=== PATIENT | male | born 1985 ===

== ENCOUNTER 2018-03-28 18:44 | Emergency (ER) | payer BC, OTHER ==
[2018-03-28 19:34] VITALS: BP 145/102
[2018-03-28] MEDS ORDERED: Tetan/Diph/Pertus SYR(Tdap)* 0.5 ML SYR(BOOSTRIX) use SYR IM ONE (19:58)
[2018-03-28] MEDS ORDERED: Bacitracin OINTMENT* 0.5% 0.5 oz TUBE TOPICAL ONE (19:59)
--- NOTE | 2018-03-28 21:29 | ED ---
Lidia Moraes Jade, scribed for Mariusz Witt MD on 03/28/18 at 2007 . Upper Extremity Pain - HPI Summary HPI Summary: Pt is a 33 y/o male who presents to [facility] s/p thumb injury at 18:30. He states he cut the tip of his right thumb while using a circular saw. Pain is rated 3/ 10 in severity, and he has been applying pressure to the wound. Pt has not had a Tetanus shot since he was a child. - History of Current Complaint Chief Complaint: UCLaceration Stated Complaint: THUMB INJURY Time Seen by Provider: 03/28/18 19:48 Hx Obtained From: Patient Mechanism Of Injury: Other - Circular saw Onset/Duration: Started Hours Ago - 18:30, Still Present Severity Currently: Moderate - 3/10 Pain Location: Finger - Right thumb - Allergies/Home Medications Allergies/Adverse Reactions: Allergies Allergy/AdvReac Type Severity Reaction Status Date / Time No Known Allergies Allergy Verified 03/28/18 19:35 Home Medications: Home Medications Dextroamphetamine/Amphetamine [Adderall Xr 30 mg Capsule] 30 mg PO DAILY [History Confirmed 03/28/18] PMH/Surg Hx/FS Hx/Imm Hx Psychiatric History: Reports: Hx Attention Deficit Hyperactivity Disorder - Surgical History Surgery Procedure, Year, and Place: deviated septum repair, appy Infectious Disease History: No Infectious Disease History: Denies: Traveled Outside the [place] in Last 30 Days - Family History Known Family History: Positive: Other - NEGATIVE: blood clot disorders - Social History Alcohol Use: Weekly Substance Use Type: Reports: None Smoking Status (MU): Never Smoked Tobacco Review of Systems Negative: Fever Positive: Other - Right thumb evulsion - pain All Other Systems Reviewed And Are Negative: Yes Physical Exam - Summary Physical Exam Summary: Appearance: Well appearing, no pain distress Skin: warm, dry, reflects adequate perfusion. Avulsion injury of superficial portion of distal nailbed and pulp of end of rightthumb. No subungal hematoma. Head/face: normal Eyes: EOMI, ROBB ENT: normal Neck: supple, non-tender Respiratory: CTA, breath sounds present Cardiovascular: RRR, pulses symmetrical. NV intact. Abdomen: non-tender, soft Bowel Sounds: present Musculoskeletal: normal, strength/ROM intact. No tendon injury. Neuro: normal, sensory motor intact, A&Ox3 Triage Information Reviewed: Yes Vital Signs On Initial Exam: Initial Vitals Temp Pulse Resp BP Pulse Ox 98.4 F 80 16 145/102 100 03/28/18 19:29 03/28/18 19:29 03/28/18 19:29 03/28/18 19:29 03/28/18 19:29 Vital Signs Reviewed: Yes Procedures - Procedure Summary Procedure Summary: Irrigated under faucet with soap and water. Held pressure to the wound, put 3 layers of Surgicel, Bacitracin cream, ands 2 gauze dressings. Diagnostics - Vital Signs Vital Signs Temp Pulse Resp BP Pulse Ox 03/28/18 19:29 98.4 F 80 16 145/102 100 - Laboratory Lab Statement: Any lab studies that have been ordered have been reviewed, and results considered in the medical decision making process. Course/Dx - Course Course Of Treatment: Tetanus is up-to-date. Self-employed contractor. Full avulsion of tissue including the distalmost nail plate. Wound cleaned and dressed. Follow-up primary care physician. - Diagnoses Provider Diagnoses: Fingertip avulsion Discharge - Sign-Out/Discharge Documenting (check all that apply): Discharge/Admit/Transfer - Discharge - Discharge Plan Condition: Good Disposition: HOME Patient Education Materials: Nail Avulsion (ED) Referrals: Dong Apple [Primary Care Provider] - Additional Instructions: Keep clean and dry. Change dressing in 2 days time. Dressed with bacitracin ointment. Have your doctor recheck the wound in 3-4 days' time. Return if worse, new symptoms or other concerns. - Billing Disposition and Condition Condition: GOOD Disposition: Home The documentation as recorded by the Lidia garces Jade accurately reflects the service I personally performed and the decisions made by me, Mariusz Witt MD.
== END 2018-03-28 20:26 | disposition home or self-care (01) ==
LOC: UCEAST 18:44
DX: S61.101A Unspecified open wound of right thumb with damage to nail, initial encounter (principal); W29.8XXA Contact with other powered hand tools and household machinery, initial encounter; Y93.H3 Activity, building and construction; Y92.9 Unspecified place or not applicable; Y99.0 Civilian activity done for income or pay; Z23 Encounter for immunization; F90.9 Attention-deficit hyperactivity disorder, unspecified type
CPT/HCPCS: 12001; 90715; 99201; A9270-GY; G0463

== ENCOUNTER 2019-05-01 03:02 | Inpatient (IN) | payer BC, OTHER ==
--- NOTE | 2019-05-01 03:30 | ED ---
Respiratory - HPI Summary HPI Summary: This patient is a 34 year old M presenting to ED with a chief complaint of SOB since 04/29/19. 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 He was not wearing a protective mask. He began to feel poor an hour later with chest tightness, dizziness, general weakness, and lack of focus. Since then, the patient has developed chills, skins diaphoresis, shivering, wheezing cough, and mildly decreased appetite but he has still been eating. The patient rates the pain 0/ 10 in severity. Symptoms aggravated by nothing. Symptoms alleviated by nothing. - History of Current Complaint Chief Complaint: EDGeneral Stated Complaint: EXPOSED TO TOXIC DUST AT WORK THURSDAY PER PT Time Seen by Provider: 05/01/19 03:10 Hx Obtained From: Patient Onset/Duration: Gradual Onset, Lasting Days - Since 04/29/19, Still Present Initial Severity: Mild Current Severity: Mild Pain Intensity: 0 Character: Cough (Nonproductive) Aggravating Factor(s): Nothing Alleviating Factor(s): Nothing Associated Signs and Symptoms: SOB, Chest Pain - Tightness - Allergy/Home Medications Allergies/Adverse Reactions: Allergies Allergy/AdvReac Type Severity Reaction Status Date / Time No Known Allergies Allergy Verified 03/28/18 19:35 PMH/Surg Hx/FS Hx/Imm Hx Respiratory History: Reports: Hx Seasonal Allergies Denies: Hx Asthma, Hx Chronic Obstructive Pulmonary Disease (COPD), Hx Pneumonia Sensory History: Denies: Hx Deafness Opthamlomology History: Denies: Hx Legally Blind EENT History: Denies: Hx Deafness Psychiatric History: Reports: Hx Attention Deficit Hyperactivity Disorder - Surgical History Surgery Procedure, Year, and Place: deviated septum repair, appy - Immunization History Immunizations Up to Date: Yes Infectious Disease History: No Infectious Disease History: Denies: Traveled Outside the [place] in Last 30 Days - Family History Known Family History: Positive: Other - NEGATIVE: blood clot disorders - Social History Alcohol Use: Weekly Hx Substance Use: No Substance Use Type: Reports: None Hx Tobacco Use: No Smoking Status (MU): Never Smoked Tobacco Review of Systems Positive: Chills, Fatigue, Skin Diaphoresis Positive: Chest Pain - Tightness Positive: Shortness Of Breath, Cough Neurological: Other - Dizziness, lack of focus, weakness All Other Systems Reviewed And Are Negative: Yes Physical Exam - Summary Physical Exam Summary: Appearance: Well-appearing, Well-nourished, lying in bed comfortable, no fever Skin: slightly clammy and diaphoretic Eyes: sclera anicteric, no conjunctival pallor ENT: mucous membranes moist Neck: deferred Respiratory: No signs of respiratory distress Cardiovascular: tachycardic Abdomen: deferred Musculoskeletal: Moving all 4 extremities without obvious discomfort Neurological: Awake and alert, mentation is normal, speech is fluent and appropriate Psychiatric: affect is normal, does not appear anxious or depressed Triage Information Reviewed: Yes Vital Signs On Initial Exam: Initial Vitals Temp Pulse Resp BP Pulse Ox 98.7 F 103 20 120/87 97 05/01/19 03:06 05/01/19 03:06 05/01/19 03:06 05/01/19 03:06 05/01/19 03:06 Vital Signs Reviewed: Yes Diagnostics - Vital Signs Vital Signs Temp Pulse Resp BP Pulse Ox 05/01/19 03:06 98.7 F 103 20 120/87 97 - Laboratory Result Diagrams: 05/01/19 05:47 05/01/19 05:47 Lab Statement: Any lab studies that have been ordered have been reviewed, and results considered in the medical decision making process. - Radiology CXR Radiology Interpretation Completed By: ED Physician Summary of Radiographic Findings: No acute processes, pending official radiology report. - CT CTA Chest CT Interpretation Completed By: Radiologist Summary of CT Findings: Negative CTA chest. No pulmonary embolism is identified. Dr. Atkins has reviewed this radiology report. - EKG 0452 Cardiac Rate: NL - 96 BPM EKG Rhythm: Sinus Rhythm Summary of EKG Findings: NSR at 96 BPM, non specific ST changes, likely early repolarization, non-STEMI, borderline IVCD. Re-Evaluation - Re-Evaluation First Eval Re-Evaluation Time: 06:40 Comment: Discussed results with patient. Patient will be admitted [place] [facility] [place] dx of non-STEMI. Patient understands and agrees with this plan. Disposition - Course Course Of Treatment: This patient is a 34 year old M presenting to ED with a chief complaint of SOB since 04/29/19. CXR revealed no acute processes, pending official radiology report. Blood work obtained. EKG at 0452 revealed NSR at 96 BPM, non specific ST changes, likely early repolarization, non-STEMI, borderline IVCD. In the ED course, patient received heparin. CTA chest revealed negative CTA chest. No pulmonary embolism is identified. Discussed patient case with Dr. Galarza, hospitalist, who accepted the patient for admission to [facility] Patient will be admitted to [facility] with dx of non-STEMI. Patient understands and agrees with this plan. - Diagnoses Provider Diagnoses: Non-STEMI (non-ST elevated myocardial infarction) - Physician Notifications Discussed Care Of Patient With: Casandra Galarza Time Discussed With Above Provider: 06:34 Instructed by Provider To: Admit As Inpatient - Discussed patient case with Dr. Galarza, hospitalist, who accepted the patient for admission to [facility]. - Critical Care Time Critical Care Time: 30-74 min - 30 min Discharge - Sign-Out/Discharge Documenting (check all that apply): Patient Departure - Admit Patient Received Moderate/Deep Sedation with Procedure: No - Discharge Plan Condition: Fair Disposition: ADMITTED TO [facility] Referrals: Dong Apple [Primary Care Provider] - - Attestation Statements Document Initiated by Scribe: Yes Documenting Scribe: Emmanuel Saleh Provider For Whom Scribe is Documenting (Include Credential): Spencer Atkins MD Scribe Attestation: Emmanuel Moraes, scribed for Spencer Atkins MD on 05/01/19 at 0648. Status of Scribe Document: Ready
[2019-05-01 03:56] LABS: ABS Eosinophils 0.1 10^3/ul (0-0.6); ABS Lymphocytes 1.2 10^3/ul (1.0-4.8); ABS Monocytes 1.2 10^3/ul (0-0.8); ABS Neutrophils 9.6 10^3/ul (1.5-7.7); Eosinophil % 0.7 %; Hematocrit 39 % (42-52); Hemoglobin 13.7 g/dL (14.0-18.0); Lymphocyte % 9.7 %; Mean Corpuscular HGB Conc 35 g/dL (31-36); Mean Corpuscular Hemoglobin 31 pg (27-31); Mean Corpuscular Volume 89 fL (80-94); Platelet Count 216 10^3/uL (150-450); Red Blood Count 4.42 10^6 /uL (4.18-5.48); Red Cell Distribution Width 12 % (10-15); White Blood Count 12.1 10^3/uL (3.5-10.8)
[2019-05-01 04:30] LABS: ALT 31 U/L (7-52); AST 23 U/L (13-39); Albumin 3.9 g/dL (3.2-5.2); Albumin/Globulin Ratio 1.5 (1-3); Alkaline Phosphatase 63 U/L (34-104); Anion Gap 8 mmol/L (2-11); BUN/Creatinine Ratio 12.5 (8-20); Blood Urea Nitrogen 13 mg/dL (6-24); CO2 Carbon Dioxide 20 mmol/L (22-32); Calcium 8.7 mg/dL (8.6-10.3); Chloride 107 mmol/L (101-111); EGFR African American 98.3 (>60); EGFR Non-African American 81.3 (>60); Globulin 2.6 g/dL (2-4); Glucose 124 mg/dL (70-100); Potassium 3.7 mmol/L (3.5-5.0); Sodium 135 mmol/L (135-145); Total Protein 6.5 g/dL (6.4-8.9)
[2019-05-01 04:34] LABS: Troponin I 0.35 ng/mL (<0.04)
[2019-05-01] MEDS ORDERED: Iohexol 350* (CONTRAST) 500 ML MDV IV ONE (04:51)
[2019-05-01] MEDS ORDERED: Heparin VIAL(*) 5000 UNITS/ML VIAL (FIVE THOUSAND) IV PRN (04:57)
[2019-05-01] MEDS ORDERED: Heparin DRIP 25,000 UNITS(*) 25,000 UNITS/500 ML BAG IV SCH (05:00)
[2019-05-01 06:05] LABS: ABS Eosinophils 0.1 10^3/ul (0-0.6); ABS Lymphocytes 1.8 10^3/ul (1.0-4.8); ABS Monocytes 1.3 10^3/ul (0-0.8); ABS Neutrophils 8.6 10^3/ul (1.5-7.7); Eosinophil % 0.6 %; Hematocrit 39 % (42-52); Hemoglobin 13.6 g/dL (14.0-18.0); Lymphocyte % 15.3 %; Mean Corpuscular HGB Conc 35 g/dL (31-36); Mean Corpuscular Hemoglobin 31 pg (27-31); Mean Corpuscular Volume 89 fL (80-94); Mean Platelet Volume 7.1 fL (7.4-10.4); Platelet Count 218 10^3/uL (150-450); Red Blood Count 4.36 10^6 /uL (4.18-5.48); Red Cell Distribution Width 12 % (10-15); White Blood Count 11.9 10^3/uL (3.5-10.8)
[2019-05-01 06:22] LABS: EGFR African American 107.9 (>60); EGFR Non-African American 89.1 (>60)
[2019-05-01 06:30] LABS: Troponin I 0.43 ng/mL (<0.04)
[2019-05-01 07:14] LABS: C Reactive Protein 41.95 mg/L (<8.01)
[2019-05-01 08:09] LABS: Erythrocyte Sed Rate 10 mm/Hr (0-14)
[2019-05-01] MEDS ORDERED: Acetaminophen TAB* 325 MG PO PRN (08:21)
[2019-05-01] MEDS ORDERED: Calcium Carbonate CHEW TAB* 500 MG (TUMS) PO PRN (08:30)
[2019-05-01] MEDS ORDERED: Aspirin 81 mg CHEW TAB* 81 MG TAB.CHEW PO SCH (09:00)
[2019-05-01 09:24] LABS: Troponin I 0.73 ng/mL (<0.04)
[2019-05-01] MEDS: Pantoprazole TAB * 40 MG TAB PO SCH (09:38)
[2019-05-01] MEDS: Amphetamine/Dextroamph ER(NF) 10 MG CAP.ER PO SCH ×2 (09:38→21:30)
--- NOTE | 2019-05-01 11:03 | HP ---
CC: YASIR Zacarias; Dr. Blackmon * HISTORY AND PHYSICAL: DATE OF ADMISSION: 05/01/19 PRIMARY CARE PROVIDER: YASIR Zacarias CHIEF COMPLAINT: Shortness of breath and chest pain. HISTORY OF PRESENT ILLNESS: Enoc uHffman is a 34-year-old male with a history of ADHD, who stated that he works with wood and he was exposed to urea- formaldehyde adhesive when he was working on wood sewing 3 days ago. The patient stated that he was not using protective eyewear or mask when he was working on cutting the wood that was glued with an adhesive that contained formaldehyde. Shortly thereafter within an hour or so, he developed symptoms of not feeling well, slightly dizzy, flushed, and short of breath with coughing. He went home to rest, but he continued on working later on. Ever since then, nightly he would have episodes of dry cough when he was trying to lie down and started developing pleuritic chest pain, worse when lying down. Currently, he denies any pain, but he stated that when he takes a deep breath and lies down, the pain recurs. He stated that he had similar symptoms with fevers when he was diagnosed with Lyme disease 3 years ago. He does not remember any recent tick bites. He denies any fevers. His troponin was 0.4 in the emergency department and his EKG shows TN depressions. He is going to be placed under observation with a diagnosis of likely pericarditis. PAST MEDICAL HISTORY: 1. ADHD. 2. History of appendectomy at the age of 13. MEDICATIONS: Include: 1. Tums on a p.r.n. basis. 2. Adderall XR 20 mg b.i.d. 3. Ranitidine [id number] on a p.r.n. basis. FAMILY HISTORY: Parents and sister are healthy. Maternal grandfather with a history of early heart disease in his 60s. SOCIAL HISTORY: The patient smokes marijuana "almost daily." He denies any other drug use. He denies any tobacco use. He drinks an occasional beer. He is a wood worker. His surrogate is his . REVIEW OF SYSTEMS: Please see history of present illness. All the remaining 12 systems were reviewed with the patient and were otherwise negative. PHYSICAL EXAMINATION GENERAL: The patient is a pleasant 34-year-old male, who is in no acute distress. Alert, awake, and oriented x3. VITAL SIGNS: Blood pressure of 108/78, heart rate of 84 and regular, respiratory rate 26, oxygen saturation 96% on room air, temperature of 98.7. HEENT: Head: Atraumatic, normocephalic. Eyes: Pupils are equal and reactive to light and accommodation. Oropharynx clear. Mucosa moist. NECK: Supple. No JVD. No bruits bilaterally. RESPIRATORY: Clear to auscultation bilaterally. CARDIOVASCULAR: Regular rate and rhythm. No murmur. ABDOMEN: Soft, nontender. Bowel sounds present in all 4 quadrants. EXTREMITIES: There is no edema. Pulses are +2 bilaterally. There is no clubbing or cyanosis. NEUROLOGIC: On neuro evaluation, speech is clear. Cranial nerves II through XII grossly intact. Motor strength is 5/5 bilaterally. SKIN: On evaluation of the skin, no ecchymotic areas or rashes noted. DIAGNOSTIC STUDIES/LAB DATA: Laboratory data shows sodium of 135, potassium 3.7, chloride 107, carbon dioxide 20, BUN 13, creatinine 1.04. Liver function tests unremarkable. Troponin 0.35, second troponin 0.43. C-reactive protein of 41, ESR of 10. CBC: White blood cell count of 11.9, hemoglobin of 13.6, hematocrit of 39, and platelets of 218. CT angiogram of the chest was negative for PE or other marked abnormalities. The patient's EKG showed sinus tachycardia with a heart rate of 95 beats per minute with significant TN depressions and subsequent ST elevations in leads V2 through V5. ASSESSMENT AND PLAN: 1. Pleuritic chest pain, worse with lying down in a 34-year-old male with no significant past medical history. At this point, it is most likely on the threshold of pericarditis. I discussed the case with Dr. Blackmon, who will see the patient on consultation. I will place in for a transthoracic echocardiogram. I will place the patient on telemetry monitored bed and continue taking his troponins. I will place on baby aspirin and if Cardiology is okay with that, nonsteroidal anti-inflammatory medications will be started after cardiology consult. The patient's ESR is normal, but his CRP is elevated. The etiology of this pericarditis may be related the patient's toxic exposure to the formaldehyde glue. It also could be a viral infection, and although Lyme's is less likely, I will order Lyme titers also. 2. For attention deficit hyperactivity disorder, the patient's Adderall is going to be continued. 3. For DVT prophylaxis, the patient is ambulatory and low risk. 4. The patient's code status is full. His surrogate is his . TIME SPENT: Approximately 65 minutes was spent on admission of this patient, more than half that time was spent [id number] with the patient during the interview and physical exam. [id number]/[facility] #: [id number] AMITA
[2019-05-01] MEDS: oxyCODONE/Acetamin 5/325 MG* TAB PO PRN ×3 (13:00→21:32)
[2019-05-01] MEDS: Ibuprofen TAB* 600 MG PO SCH ×2 (14:59→21:32)
[2019-05-01 15:43] LABS: Troponin I 1.96 ng/mL (<0.04)
--- NOTE | 2019-05-01 16:13 | CONS ---
CC: Mr. Dong Apple, [facility] CARDIOLOGY CONSULTATION: DATE OF CONSULT: 05/01/19 REFERRING PHYSICIAN: Dr. Shwetha Jay. REASON FOR CARDIOLOGY CONSULTATION: Concern for myopericarditis in this patient with chest pain. HISTORY OF PRESENT ILLNESS: I was kindly asked to see me Mr. Huffman for Cardiology consultation by Dr. Jay as he has been having chest pain and there is concern he has myopericarditis. 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 About an hour later, he began to feel some chest discomfort especially with deep breaths and was having some trouble taking deep breaths as well as he noted some lightheadedness. This seemed to persist during the next day, i.e. yesterday, so he presented to our emergency room. Here, he has been found to have mildly elevated troponin of 0.35 to 0.73. The patient states that at its worst, his chest pain was 3 to 4 out of 10; and currently, it is a 1/10 at rest and when he takes a deep breath, his chest pain becomes a 2/10. His chest pain does not radiate. He does not have clear shortness of breath, but notes that he has some difficulty apparently getting a deep breath in. He has also had some sweats and chills. PAST MEDICAL HISTORY: Significant for ADD and occasional heartburn. PAST SURGICAL HISTORY: Appendectomy at age of 13. OUTPATIENT MEDICATIONS: 1. Adderall XR 20 mg p.o. b.i.d. 2. He also takes Zantac [id number] p.r.n. and Tums p.r.n. for heartburn. ALLERGIES: None. He denies shrimp, seafood, or allergy. FAMILY HISTORY: His maternal grandfather with AL in his late 60s. No family history of stroke, cancer, or diabetes. SOCIAL HISTORY: He does not smoke cigarettes. He occasionally drinks alcohol. He occasionally smokes pot. No other illicit drug use. He has been for 4 years. He does not have children. He works as a builder, and he is a college graduate. He does exercise with running including trails and does not have chest pain with that. REVIEW OF SYSTEMS: He denies a personal history of cancer, vomiting of blood, coughing of blood, bright red blood per rectum, bleeding, or stomach ulcer, renal calculi, cholelithiasis, asthma, emphysema, pneumonia, tuberculosis, sleep apnea, home oxygen use, diabetes, hypertension, prior AL, congestive heart failure, cardiac surgery, cardiac murmurs, palpitations, psychiatric illnesses. He does have ADD. Denies lupus, psoriasis, seizures, Parkinson disease, myasthenia gravis, thyroid disorders, liver disorders, kidney disorders , claudication symptoms, pulmonary emboli, deep venous thrombosis, peripheral arterial disease; occasionally he gets heartburn. He denies peripheral edema. All other review of systems are negative x14, except as per this documentation. PHYSICAL EXAM: Vital Signs: Height 5 feet 7 inches, weight 186 pounds. Temperature 98.6 degrees Fahrenheit, pulse 94, blood pressure 114/77, O2 saturation 99%. General: He is a pleasant gentleman with thoughtful demeanor, in no acute distress. HEENT: Shows a cranium is normocephalic and atraumatic. He has moist mucosal membranes. Neck veins are not distended. There are no carotid bruits. Visible skin warm and well perfused. Affect is appropriate. He appears oriented. No significant kyphoscoliosis on the back exam. Lungs reveal rare rhonchi. No wheezes. Cardiac: S1, S2. Regular rate. No murmur or gallops. There is a 3 component pericardial friction rub. Abdomen: Soft and nondistended, appears benign. Extremities without significant edema. Pulses appeared grossly intact. DIAGNOSTIC STUDIES/LAB DATA: Troponin 0.35, followed by by 0.43, followed by 0.73 thus far, CRP 41.95, sodium 135, potassium 3.7, chloride 107, bicarbonate 20, BUN 13, creatinine 1.04. ALT 31. White blood cell count 11.9, hematocrit 39, platelet count 218. Sed rate reportedly 10. A 12-lead EKG reviewed 05/01/2019, which is reported at 2 a.m., which shows sinus rhythm and 96 beats per minute with nonspecific ST-T wave changes. Consider MN segment elevation in aVR. IMPRESSION: Mr. Huffman is a pleasant 34-year-old gentleman with chest pain likely due to myopericarditis confirmed on exam. Unclear if that was due to chemical exposure at work from his formaldehyde, viral or idiopathic etiology. He also appears to have pleuritis. I have discussed this in detail with the patient and I am making the following recommendation, with which he is in agreement. RECOMMENDATIONS: 1. Regarding his myopericarditis, he will be started on colchicine 0.6 mg p.o. b.i.d. for 3 months. He is to take also Motrin 600 mg p.o. t.i.d. ATC with food and PPI qday until he follows up with myself in 4 to 6 weeks at which point I will entertain an NSAID taper. 2. Await echocardiogram and as long he has no significant pericardial effusion and he has normal wall motion, i.e. the echo is felt overall to be benign, I feel he can be discharged home and followup with myself in 4 to 6 weeks. 3. Further management including his possible chemical pleuritis as per hospitalist medicine service and agree with cycling troponins. I have discussed the case with Dr. Jay. Dear Dr. Jay, many thanks for asking me to participate in the cardiovascular consultative care of Mr. Huffman. Please do not hesitate to contact me if you have questions or concerns regarding the patient's cardiovascular consultative care. [id number]/[facility] #: [id number] AMITA
[2019-05-01] MEDS: Colchicine* 0.6 MG TAB PO SCH (21:30)
[2019-05-02 06:51] LABS: Troponin I 3.34 ng/mL (<0.04)
[2019-05-02] MEDS: Colchicine* 0.6 MG TAB PO SCH ×2 (07:53→20:38)
[2019-05-02] MEDS: Amphetamine/Dextroamph ER(NF) 10 MG CAP.ER PO SCH ×2 (07:54→20:37)
[2019-05-02] MEDS: Pantoprazole TAB * 40 MG TAB PO SCH (07:55)
[2019-05-02] MEDS: Ibuprofen TAB* 600 MG PO SCH ×3 (07:55→20:38)
[2019-05-02] MEDS: oxyCODONE/Acetamin 5/325 MG* TAB PO PRN ×2 (07:56→13:15)
--- NOTE | 2019-05-02 10:10 | ECHO ---
*[facility]* [place] [address] Fax #: [phone] Patient: Enoc Huffman : 1985 Study Date: 05/02/2019 Age: 34 Gender: M HR: 79 bpm Height: 67 in /170.2 cm BSA: 1.96 m^2 Weight: 184.6 lb /83.9 kg BMI: 29 kg/m^2 *Needle Molder: * Michelle Puga [facility] *Referring Physician: * Shwetha Jay *Reading Physician: * Harmony Duque MD Indications: SOB. Elevated troponin level. History: Risk factors: Current tobacco use. Marijuana use, Lyme's diesease. Conclusions Summary: 1. Left ventricle: The cavity size is normal. Wall thickness is normal. Systolic function is mildly reduced. The estimated ejection fraction is 45-50%. Mild diffuse hypokinesis. 2. Mitral valve: There is mild regurgitation. 3. Pericardium, extracardiac: There is no significant pericardial effusion. 4. No previous echocardiogram available. Study data: Procedure: Transthoracic echocardiography was performed. Image quality was good. Complete 2D, spectral Doppler, and color flow Doppler. Location: Bedside. Patient status: Inpatient. Patient room number: 446-1. Rhythm: Normal sinus rhythm. Findings Left ventricle: The cavity size is normal. Wall thickness is normal. Systolic function is mildly reduced. The estimated ejection fraction is 45-50%. Mild diffuse hypokinesis. Left ventricular diastolic function parameters are indeterminate. Right ventricle: The cavity size is normal. The moderator band is in a normal position. Systolic function is low normal. The tricuspid jet envelope definition is inadequate for estimation of RV systolic pressure. There are no indirect findings (abnormal RV volume or geometry, altered pulmonary flow velocity profile, or leftward septal displacement) which would suggest moderate or severe pulmonary hypertension. Left atrium: The atrium is normal in size. Right atrium: The atrium is normal in size. 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 Mitral valve: The leaflets are normal thickness. There is no evidence of stenosis. There is mild regurgitation. Aortic valve: The valve is trileaflet. The leaflets are normal thickness. There is no evidence of stenosis. There is no significant regurgitation. Tricuspid valve: The leaflets are normal thickness. There is no evidence of stenosis. There is physiologic regurgitation. Pulmonic valve: The leaflets are normal thickness. There is no evidence of stenosis. There is trace regurgitation. Aorta: Ascending aorta: The ascending aorta is upper normal in size. Aortic arch: The aortic arch is appears normal. The aortic root is not dilated. Pericardium: There is no significant pericardial effusion. Pulmonary arteries: The main pulmonary artery is normal-sized. Systemic veins: Inferior vena cava: The vessel is normal in size. The respirophasic diameter changes are in the normal range (>= 50%). Measurements Left ventricle Value Ref Aortic valve Value Ref BREANA, LAX 4.5 cm 4.2 - 5.8 Liberty diam, ED 2.2 cm ---- ESD, LAX 3.1 cm 2.5 - 4.0 Peak v, S 1.11 m/sec ---- FS, LAX 33 % 25 - 43 VTI, S 23.2 cm ---- PW, ED, LAX 1.0 cm 0.6 - 1.0 Mean grad, S 2.0 mm Hg ---- FS 33 % 25 - 43 Peak grad, S 5.0 mm Hg ---- PW, ED 1.0 cm 0.6 - 1.0 LVOT/AV, VTI ratio 0.73 ---- E', lat liberty, TDI 11.1 cm/sec >=10.0 E/e', lat liberty, 4 Mitral valve Value Ref TDI Peak E 0.49 m/sec ---- E', med liberty, TDI 9.9 cm/sec >=7.0 Peak A 0.49 m/sec -- -- E/e', med liberty, 5 Decel time 187 ms ---- TDI Peak E/A ratio 1 ---- E', avg, TDI 10.5 cm/sec E/e', avg, TDI 5 <=14 Pulmonic valve Value Re f Peak v, S 0.86 m/sec ---- LVOT Value Ref Peak grad, S 3.0 mm Hg ---- Peak deni, S 0.99 m/sec MT v, ED 0.92 m/sec ---- VTI, S 17.0 cm Mean grad, S 2 mm Hg Aortic root Value Ref Root diam 3.4 cm <3.6 Ventricular septum Value Ref IVS, ED 1.0 cm 0.6 - 1.0 Ascending aorta Value Ref AAo AP diam, S 3.6 cm ---- Right ventricle Value Ref BREANA, LAX 3.0 cm Aortic arch Value Ref BREANA minor ax, A4C (H) 4.1 cm 1.9 - 3.5 Arch diam 2.0 cm ---- mid Decending aorta Value Ref Left atrium Value Ref Kelvin peak deni 0.78 m/sec ---- AP dim, ES 3.40 cm 3.00 - 4.00 Inferior vena cava Value Ref ML dim, A4C 3.9 cm Diam 1.8 cm ---- SI dim, A4C 5.0 cm Vol/bsa, ES, 1-p 20 ml/m^2 12 - 37 A4C Vol/bsa, ES, A/L 28 ml/m^2 16 - 34 Right atrium Value Ref SI dim, ES 4.7 cm 3.4 - 5.3 ML dim, ES, A4C 3.7 cm 2.6 - 4.4 SI dim, ES, A4C 4.7 cm 3.4 - 5.3 Estimated RAP 3 mm Hg Legend: (L) and (H) omer values outside specified reference range. Prepared and electronically signed by Harmony Duque MD 05/02/2019 10:10
[2019-05-02] MEDS: Metoprolol Tartrate TAB* 25 MG PO SCH (13:13)
[2019-05-02 15:42] LABS: Troponin I 3.66 ng/mL (<0.04)
[2019-05-02 16:01] LABS: Anion Gap 5 mmol/L (2-11); BUN/Creatinine Ratio 10.2 (8-20); Blood Urea Nitrogen 12 mg/dL (6-24); CO2 Carbon Dioxide 26 mmol/L (22-32); Calcium 9.1 mg/dL (8.6-10.3); Chloride 108 mmol/L (101-111); EGFR Non-African American 70.2 (>60); Glucose 96 mg/dL (70-100); Potassium 4.6 mmol/L (3.5-5.0); Sodium 139 mmol/L (135-145)
--- NOTE | 2019-05-02 17:58 | PN ---
Subjective Date of Service: 05/02/19 Interval History: Patient seen and examined. Had chest pain early this morning but it is improved as the morning progressed. Denies SOB, no fevers or chills, no further complaints. Objective Active Medications: Acetaminophen (Tylenol Tab*) 650 mg PO Q4H PRN PRN Reason: FEVER/PAIN Amphetamine/Dextroamphetamine (Adderal Xr (Nf)) 20 mg PO BID [facility] Last Admin: 05/02/19 07:54 Dose: 20 mg Calcium Carbonate (Tums*) 500 mg PO Q4H PRN PRN Reason: DISCOMFORT Colchicine (Colcrys*) 0.6 mg PO BID [facility] Last Admin: 05/02/19 07:53 Dose: 0.6 mg Heparin Sodium (Porcine) (Heparin Vial(*)) 0 units IV .FOR BOLUSES PRN PRN Reason: HEPARIN DRIP BOLUSES Last Admin: 05/01/19 05:47 Dose: 6,300 units Ibuprofen (Motrin Tab*) 600 mg PO TID [facility] Last Admin: 05/02/19 13:14 Dose: 600 mg Metoprolol Tartrate (Lopressor Tab*) 12.5 mg PO DAILY [facility] Last Admin: 05/02/19 13:13 Dose: 12.5 mg Oxycodone/Acetaminophen (Percocet 5/325 Tab*) 1 tab PO Q4H PRN PRN Reason: Pain Last Admin: 05/02/19 13:15 Dose: 1 tab Pantoprazole Sodium (Protonix Tab*) 40 mg PO DAILY [facility] Last Admin: 05/02/19 07:55 Dose: 40 mg Vital Signs - 8 hr 05/02/19 05/02/19 05/02/19 11:20 13:15 15:27 Temperature 97.6 F 97.9 F Pulse Rate 79 79 Respiratory 20 18 16 Rate Blood Pressure 111/82 120/83 (mmHg) O2 Sat by Pulse 97 98 Oximetry Oxygen Devices in Use Now: None Appearance: alert, NAD Eyes: No Scleral Icterus, PERRLA Ears/Nose/Mouth/Throat: NL Teeth, Lips, Gums Neck: NL Appearance and Movements; NL JVP, Trachea Midline Respiratory: Symmetrical Chest Expansion and Respiratory Effort, Clear to Auscultation Cardiovascular: NL Sounds; No Murmurs; No JVD, RRR, No Edema Abdominal: NL Sounds; No Tenderness; No Distention Extremities: No Edema, No Clubbing, Cyanosis Skin: No Rash or Ulcers Neurological: Alert and Oriented x 3, NL Gait Nutrition: Taking PO's Result Diagrams: 05/01/19 05:47 05/02/19 15:08 Diagnostic Imaging: *[facility]* [place] [address] Fax #: [phone] Patient: Enoc Huffman : 1985 Study Date: 05/02/2019 Age: 34 Gender: M HR: 79 bpm Height: 67 in /170.2 cm BSA: 1.96 m^2 Weight: 184.6 lb /83.9 kg BMI: 29 kg/m^2 *Clinical Counselor: * Michelle Puga [facility] *Referring Physician: * Shwetha Jay *Reading Physician: Harmony Gunn MD Indications: SOB. Elevated troponin level. History: Risk factors: Current tobacco use. Marijuana use, Lyme's diesease. Conclusions Summary: 1. Left ventricle: The cavity size is normal. Wall thickness is normal. Systolic function is mildly reduced. The estimated ejection fraction is 45-50%. Mild diffuse hypokinesis. 2. Mitral valve: There is mild regurgitation. 3. Pericardium, extracardiac: There is no significant pericardial effusion. 4. No previous echocardiogram available. Study data: Procedure: Transthoracic echocardiography was performed. Image quality was good. Complete 2D, spectral Doppler, and color flow Doppler. Location: Bedside. Patient status: Inpatient. Patient room number: 446-1. Rhythm: Normal sinus rhythm. This report is only to be considered final once signed by the Provider(s) as displayed in the "<Electronically Signed by >" field (s). Absence of a signature indicates the report is in a draft status and still needs to be finalized. In the event this document was created by someone other than the signing Provider, the individual initiating the document will be listed in the "Entered by:" or "Dictated by:" blankenship. Assess/Plan/Problems-Billing Assessment: This is a 34 year old male with no significant medical history that presented to the ED with chest pain and potential inhalation injury. - Patient Problems (1) Myopericarditis Code(s): I31.9 - DISEASE OF PERICARDIUM, UNSPECIFIED SNOMED Code(s): 781977293 Comment: - Cardiology consult appreciated - Continue telemetry, repeat EKG this AM with no significant changes - Trops continue to trend up, continue to monitor for samson - Motrin 600 TID and colchicine 0.6 TID initiated - PPI while on NSAIDs - ECHO as above, some drop off in EF, no pericardial effusion, start low dose beta smita - Follow lyme and WBC count, unclear if infectous etiology vs potential inhalation injury (2) PATRICE (acute kidney injury) Code(s): N17.9 - ACUTE KIDNEY FAILURE, UNSPECIFIED SNOMED Code(s): 46808853 Comment: - In setting of myopericarditis, no obvious infection, UOP adequate - Follow labs in AM, give gentle hydration/small boblus, monitor for overload given decrease in EF Status and Disposition: Inpatient. Dispo to home when medically stable.
[2019-05-02] MEDS ORDERED: NS 0.9% 500 ML* 500 ML IV ONE (18:05)
[2019-05-02 20:23] LABS: Troponin I 2.99 ng/mL (<0.04)
[2019-05-03 07:05] LABS: Anion Gap 6 mmol/L (2-11); BUN/Creatinine Ratio 16.4 (8-20); Blood Urea Nitrogen 18 mg/dL (6-24); CO2 Carbon Dioxide 26 mmol/L (22-32); Chloride 108 mmol/L (101-111); EGFR African American 92.2 (>60); EGFR Non-African American 76.2 (>60); Glucose 87 mg/dL (70-100); Potassium 4.5 mmol/L (3.5-5.0); Sodium 140 mmol/L (135-145)
[2019-05-03 07:06] LABS: ABS Eosinophils 0.2 10^3/ul (0-0.6); ABS Monocytes 0.6 10^3/ul (0-0.8); ABS Neutrophils 4.9 10^3/ul (1.5-7.7); Eosinophil % 2.8 %; Hematocrit 42 % (42-52); Hemoglobin 14.8 g/dL (14.0-18.0); Lymphocyte % 26.5 %; Mean Corpuscular HGB Conc 35 g/dL (31-36); Mean Corpuscular Hemoglobin 31 pg (27-31); Mean Corpuscular Volume 89 fL (80-94); Mean Platelet Volume 7.3 fL (7.4-10.4); Nucleated Red Blood Cells % 0.1; Platelet Count 247 10^3/uL (150-450); Red Blood Count 4.74 10^6 /uL (4.18-5.48); Red Cell Distribution Width 13 % (10-15); White Blood Count 7.7 10^3/uL (3.5-10.8)
[2019-05-03] MEDS: Colchicine* 0.6 MG TAB PO SCH (08:10)
[2019-05-03] MEDS: Ibuprofen TAB* 600 MG PO SCH (08:11)
[2019-05-03] MEDS: Metoprolol Tartrate TAB* 25 MG PO SCH (08:11)
[2019-05-03] MEDS: Amphetamine/Dextroamph ER(NF) 10 MG CAP.ER PO SCH (08:11)
[2019-05-03] MEDS: Pantoprazole TAB * 40 MG TAB PO SCH (08:11)
--- NOTE | 2019-05-03 09:56 | PN ---
Subjective Date of Service: 05/03/19 - CC: pleuritic CP-resolved Interval History: The patient states this is the first day he's felt well.\ No CP today, needed a percocet yesterday. Denies GI c/o with Motrin Denies diarrhea with colchicine. No orthopnea, complete resolution of pleuritic CP Slight spacey feeling since metoprolol started. Medications Active Medications: Acetaminophen (Tylenol Tab*) 650 mg PO Q4H PRN PRN Reason: FEVER/PAIN Amphetamine/Dextroamphetamine (Adderal Xr (Nf)) 20 mg PO BID [facility] Last Admin: 05/03/19 08:11 Dose: 20 mg Calcium Carbonate (Tums*) 500 mg PO Q4H PRN PRN Reason: DISCOMFORT Colchicine (Colcrys*) 0.6 mg PO BID [facility] Last Admin: 05/03/19 08:10 Dose: 0.6 mg Heparin Sodium (Porcine) (Heparin Vial(*)) 0 units IV .FOR BOLUSES PRN PRN Reason: HEPARIN DRIP BOLUSES Last Admin: 05/01/19 05:47 Dose: 6,300 units Ibuprofen (Motrin Tab*) 600 mg PO TID [facility] Last Admin: 05/03/19 08:11 Dose: 600 mg Metoprolol Tartrate (Lopressor Tab*) 12.5 mg PO DAILY [facility] Last Admin: 05/03/19 08:11 Dose: 12.5 mg Oxycodone/Acetaminophen (Percocet 5/325 Tab*) 1 tab PO Q4H PRN PRN Reason: Pain Last Admin: 05/02/19 13:15 Dose: 1 tab Pantoprazole Sodium (Protonix Tab*) 40 mg PO DAILY [facility] Last Admin: 05/03/19 08:11 Dose: 40 mg Objective Vital Signs: Temp Pulse Resp BP Pulse Ox 97.9 F 86 16 110/76 99 05/03/19 07:44 05/03/19 07:44 05/03/19 08:00 05/03/19 07:44 05/03/19 07:44 Oxygen Devices in Use Now: None Appearance: young male, seated, no distress. Eyes: No Scleral Icterus, PERRLA Ears/Nose/Mouth/Throat: Clear Oropharnyx, Mucous Membranes Moist Neck: NL Appearance and Movements; NL JVP Respiratory: Symmetrical Chest Expansion and Respiratory Effort, Clear to Auscultation Cardiovascular: RRR - no murmurs, no rub.\ Abdominal: NL Sounds; No Tenderness; No Distention Extremities: No Edema - warm. Skin: No Rash or Ulcers Neurological: Alert and Oriented x 3, NL Muscle Strength and Tone Laboratory Results: 05/03/19 05:36 05/03/19 05:36 APTT 32.2 seconds (26.0-38.0) 05/01/19 05:47 Total Bilirubin 0.40 mg/dL (0.2-1.0) 05/01/19 03:41 AST 23 U/L (13-39) 05/01/19 03:41 ALT 31 U/L (7-52) 05/01/19 03:41 Alkaline Phosphatase 63 U/L (34-104) 05/01/19 03:41 Total Protein 6.5 g/dL (6.4-8.9) 05/01/19 03:41 Albumin 3.9 g/dL (3.2-5.2) 05/01/19 03:41 Globulin 2.6 g/dL (2-4) 05/01/19 03:41 Albumin/Globulin Ratio 1.5 (1-3) 05/01/19 03:41 05/01/19 05/01/19 05/01/19 03:41 05:47 08:39 Troponin I 0.35 H* 0.43 H* 0.73 H* 05/01/19 05/02/19 05/02/19 15:07 05:47 15:08 Troponin I 1.96 H* 3.34 H* 3.66 H* 05/02/19 05/03/19 19:56 05:36 Troponin I 2.99 H* 2.80 H* Diagnostic Imaging: Patient: Enoc Huffman : 1985 Study Date: 05/02/2019 Indications: SOB. Elevated troponin level. History: Risk factors: Current tobacco use. Marijuana use, Lyme's diesease. Conclusions Summary: 1. Left ventricle: The cavity size is normal. Wall thickness is normal. Systolic function is mildly reduced. The estimated ejection fraction is 45-50%. Mild diffuse hypokinesis. 2. Mitral valve: There is mild regurgitation. 3. Pericardium, extracardiac: There is no significant pericardial effusion. 4. No previous echocardiogram available. Study data: Procedure: Transthoracic echocardiography was performed. Image quality was good. Complete 2D, spectral Doppler, and color flow Doppler. Location: Bedside. Patient status: Inpatient. Patient room number: 446-1. Rhythm: Normal sinus rhythm. EKG Data: 05/02/19: NSR, diffuse non specific J point type ST elevation. Assessment/Plan 34 yo with history c/w pericarditis, fevers, pleuritic CP. Echo showed mild decrease in EF, no effusion. CRP 42. Improving with colchicine, NSAIDs now pain free, trops decreasing. Tolerating low dose BB by vitals. Recommend: OK to d/c at this point. I would change to metoprolol XL, give HS (Start tonight), 25 mg/day Continue colchicine, NSAIDs for now, tentative plan of colchicine for at least 1 month, around the clock NSAIDs 1-2 weeks. F/u with Dr Blackmon in 1-2 weeks. Discussed work, he is able to modify work and exercise to minimize stress on heart.
[2019-05-03 12:12] VITALS: BP 116/80
--- NOTE | 2019-05-03 20:26 | DS ---
CC: YASIR Vasquez; Dr. Augustine Blackmon * DISCHARGE SUMMARY: DATE OF ADMISSION: 05/02/19 DATE OF DISCHARGE: 05/03/19. PRIMARY CARE PROVIDER: YASIR Vasquez. CARDIOLOGY: Dr. Augustine Blackmon, ATTENDING PHYSICIAN: Dr. Abraham Castorena.* (DICTATED BY BELKIS CRISTINA NP) HOSPITAL COURSE: Please refer to admitting H and P on 05/01/19, but in short, Mr. 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 The patient states he was not using protective equipment during this exposure. Thereafter he felt unwell. He was dizzy, flushed, short of breath, and coughing. He said he having episodes of dry cough and then started having pleuritic type chest pain, which was worse when lying flat. He came to the emergency department thereafter to be evaluated. He was concerned because he did have positive Lyme test 3 years prior with some similar symptoms, although at this time did not recollect any recent tick bites or rashes. In the emergency department, he had an initial troponin drawn, which was 0.4. His EKG showed MD depressions, which were likely indicative of pericarditis. The patient was admitted for his pleuritic chest pain and he was seen in consultation with Dr. Blackmon. He was placed on telemetry and an echocardiogram was ordered. Serial troponins were tested. Additional labs including CRP and sed rate were tested as well in the emergency department, which were also noted to be evaluated for the supporting diagnosis of myopericarditis. It was questionable at that point whether it was related to a toxic-formaldehyde exposure versus viral etiology versus Lyme; however, in any case, the treatment for his condition were made essentially the same with antiinflammatories, serial troponins and telemetry monitoring and evaluation for pericardial effusion. The patient did have repeat EKG as his troponins continued to trend up. His troponin did samson at 3.66 on 05/02/19. Troponins began to trend down over the last 24 hours at 2.99 and then today at 2.80. He did continue to have elevations on his EKG and continued chest pain. He responded well to antiinflammatories with ibuprofen 3 times a day and colchicine 2 times a day. He also had a few doses of Percocet, which also helped relieve some of his chest pain. He was also noted to have slightly elevated creatinine. He received a small fluid bolus and his creatinine subsequently normalized. In terms of his echocardiogram, he did have a slight drop off in some LV function. His echo showed ejection fraction to be slightly depressed at 45% to 50%, but there was no significant pericardial effusion. Also of note, the patient did have a CTA of the chest when he first came to the emergency department to rule out PE given the significant amount of chest pain and some shortness he was having and there was no PE noted. The patient did respond very well to antiinflammatories and as stated above, the troponins did trend down favorably. He was cleared by Cardiology today for discharge to home with recommendations for continuing antiinflammatories for an additional 2 weeks , continuing colchicine for the next month, and outpatient followup cardiology. Cardiology recommended in addition to anti-inflammatories and colchicine, the patient will be started on low-dose beta-smita given the slight drop in his ejection fraction. He was initially started on short-acting metoprolol 12.5 mg ; however, on evaluation by cardiology today, Dr. Kevin recommended 25 mg of metoprolol XL to be given in the evening, which he was prescribed at discharge. REVIEW OF SYSTEMS: The patient's review of systems today, he denies any fever, fatigue, or chills. No dizziness, no headaches. His chest pain has completely resolved. He is not short of breath. No nausea, no vomiting. No abdominal pains. No urinary complaints. No arthralgias or myalgias and no further constitutional complaints. PHYSICAL EXAMINATION: Today reveals a well-appearing gentleman, in no acute distress. Vital signs are blood pressure 116/80, heart rate 75, respiratory rate 16, O2 saturation 98% on room air with temperature of 97.7. HEENT: Patient is atraumatic, normocephalic. PERRLA and nonicteric sclerae. Oral mucosa is moist. Tongue is midline. Neck is supple, no JVD noted. No carotid bruit auscultated. No thyromegaly appreciated. Cardiovascular: S1, S2 present. No murmurs, gallops, or rubs noted. Rate and rhythm are regular. Lungs are clear bilaterally to auscultation with no wheezes, rhonchi, or rales. Abdomen is soft, nontender, nondistended. No organomegaly noted. Positive bowel sounds in all 4 quadrants. : Deferred. Musculoskeletal: No clubbing, no cyanosis, no edema. Full range of motion, steady gait. Neurologic: Grossly intact. Psychiatric: Cooperative and appropriate. LABORATORY DATA: WBC 7.7, RBC is 4.74, hemoglobin 14.8, hematocrit 42, platelet 247. Sodium 140, potassium 4.5, chloride 108, CO2 26, BUN 18, creatinine 1.10, GFR 76.2, glucose 87, calcium 9.0. At admission, troponin was 0.35. Next reading 0.43, 0.73, 1.96, 3.34, 3.66, 2.99, and 2.80. IMAGING: As noted in the body of the paragraph above, CTA negative for PE. Echo normal valves and slight decrease in ejection fraction of 45% to 50%. Chest x-ray with no acute cardiopulmonary process. Last EKG on 05/02/19 showed sinus rhythm with a slightly prolonged MD interval with elevation in the precordial leads consistent with pericarditis. DISCHARGE DIAGNOSES: 1. Acute myopericarditis. 2. Acute kidney injury, resolved. 3. History of attention deficit hyperactivity disorder, stable. MEDICATIONS FOR DISCHARGE: Include: Adderall XR 20 mg p.o. b.i.d. New medications include: 1. Pantoprazole 40 mg p.o. daily. 2. Metoprolol succinate XL 25 mg p.o. at bedtime. 3. Ibuprofen 600 mg p.o. 3 times a day for 1 to 2 weeks. 4. Colchicine 0.6 mg p.o. b.i.d. for the next month. FOLLOWUP: The patient was instructed to follow up with Dr. Augustine Blackmon of Cardiology in the next 1 [address] Dong Apple, his primary care provider in the next 4 to 7 days. DISPOSITION: The patient was discharged to home in stable condition. All questions were answered. The patient stated understanding of his discharge diagnosis, new medications, and followups. TIME SPENT: Forty five minutes on discharge planning and evaluation. BELKIS CRISTINA, SEMIAUTOMATIC STITCHER OPERATOR [id number]/[facility] #: [id number] AMITA
== END 2019-05-03 13:50 | disposition home or self-care (01) | DRG 207 ==
LOC: ED 03:02 → MEDTELE 08:21 → OBSVTOIN 05-02 17:00
PROVIDERS: ADMIT Internal Medicine; ATTEND Internal Medicine
DX: I31.9 Disease of pericardium, unspecified (principal); N17.9 Acute kidney failure, unspecified; J30.2 Other seasonal allergic rhinitis; F90.9 Attention-deficit hyperactivity disorder, unspecified type; Z82.49 Family history of ischemic heart disease and other diseases of the circulatory system; Z72.89 Other problems related to lifestyle; Z72.0 Tobacco use
CPT/HCPCS: 36415; 71046; 71275; 80048; 80053; 82565; 84484; 84520; 85025; 85652; 85730; 86140; 86617; 86618; 93005; 93306; 99285; A9270-GY; G0378; J1644; Q9967